=== PATIENT | female | born 1950 | race Hispanic/Latino ===

== ENCOUNTER 2016-08-04 07:48 | Inpatient (IN) | payer MEDICARE ==
[2016-08-01 11:48] VITALS: BMI 31.8
[2016-08-04] MEDS ORDERED: Lactated Ringer's 1,000 ML IV ONE ×2 (08:40→11:50)
[2016-08-04] MEDS ORDERED: Naloxone 0.4 mg/ml Inj (Adult) ONE (11:40)
[2016-08-04] MEDS ORDERED: Oxycodone/Acetaminophen 5/325 mg Tab PO PRN (11:52)
[2016-08-04] MEDS ORDERED: Naloxone 0.4 mg/ml Inj (Adult) IVP ONE (11:53)
--- NOTE | 2016-08-04 12:00 | PCM.SURG1 ---
Surgeon's Initial Post Op Note - Surgeon's Notes Surgeon: Dr. Sean Murillo Embedded Systems Software Developer: Brigette Hernandez, PGY1 Pre-Operative Diagnosis: Left breast cancer Operative Findings: See full operative report Post-Operative Diagnosis: same Operation Performed: Left breast modified radical mastectomy with left axillary lymph node dissection Specimen/Specimens Removed: Left breast, axillary lymph nodes Estimated Blood Loss: EBL {In ML}: 50 Drains Used: Johnathan Date of Surgery/Procedure: 08/04/16 Time of Surgery/Procedure: 10:00
[2016-08-04] MEDS ORDERED: HYDROmorphone 0.5 mg/0.5 ml ISec IVP PRN (12:28)
[2016-08-04] MEDS ORDERED: Naloxone 0.4 mg/ml Inj (Adult) IVP STA (12:35)
--- NOTE | 2016-08-04 15:39 | OP ---
PROCEDURE DATE: 08/04/2016 SURGEON: Dr. Murillo LICENSED MORTICIAN: Dr. Hernandez ANESTHESIA: General, Dr. Oviedo. PREOPERATIVE DIAGNOSIS: Carcinoma, left breast. POSTOPERATIVE DIAGNOSIS: Carcinoma, left breast. PROCEDURE: Left modified radical mastectomy with axillary lymph node dissection. DESCRIPTION OF OPERATION: With the patient in the supine position under adequate general anesthesia, the left breast, the left chest and upper arm were prepped and draped in the usual sterile manner. The patient is status post neoadjuvant chemotherapy and was noted to have ulceration of the left nipp le without palpable breast mass. An incision was marked ovoid including the nipple areolar complex a nd extending laterally to the lower portion of the axilla and the upper flap incision was made. The flap was raised up almost to the level of the clavicle. Just at the 1-2 o'clock position, there was an area where the skin flap appeared slightly adherent to the breast tissue. It is unclear whether t his represents a biopsy site or residua of the primary tumor and a segment of skin was excised just i n this area. The remainder of the skin flap raised easily with no visible tumor noted in the breast. The lower skin incision was then made and the lower skin flap raised down to the chest wall and the breast tissue was dissected off the pectoralis fascia using cautery. The excision was performed fro m lateral to medial at the lower portion to preserve the serratus musculature. When the breast had b een elevated off the chest wall, the axilla was entered and axillary contents swept downward from the area of the axillary vein and divided with Hemoclips to clear the axillary content. Two sclerotic l ymph nodes were palpable. There was no other gross palpable lymphadenopathy within the axilla at thi s point. When this had been completed, all bleeders were cauterized or ligated with 4-0 Vicryl ties. A 15 Thai Johnathan drain was placed into the axilla and beneath the skin flaps and brought out throu gh a lower stab incision and closure was then performed with wilian after a sterile water irrigation . Dry sterile dressing was applied. The patient tolerated the procedure well and transferred to the recovery room in stable condition. Estimated blood loss for the procedure was 50 mL. Sean Murillo MD cc: 58 TT: 08/04/2016 15:38:49 en
--- NOTE | 2016-08-05 08:37 | CP.PCM.PN ---
Subjective - Date & Time of Evaluation Date of Evaluation: 08/05/16 Time of Evaluation: 06:05 - Subjective Subjective: SURGERY NOTE DR CHRISTENSEN 66F seen and examined at bedside. States pain is controlled, denies any other complaints. 4by4s were placed on top for re-enforcements. Dressing is clean and intact. FAVIO drain output was 155cc since operation of serosanguinous. Objective - Vital Signs/Intake and Output Vital Signs (last 24 hours): Temp Pulse Resp BP Pulse Ox 98.5 F 83 18 114/67 97 08/05/16 07:36 08/05/16 07:36 08/05/16 07:36 08/05/16 07:36 08/05/16 07:36 Intake and Output: 08/05/16 08/05/16 06:59 18:59 Intake Total 880 Output Total 395 Balance 485 - Medications Medications: Current Medications Lisinopril (Zestril) 10 mg PO DAILY MAU Ondansetron HCl (Zofran Inj) 4 mg IVP Q6 PRN PRN Reason: Nausea/Vomiting Oxycodone/Acetaminophen (Percocet 5/325 Mg Tab) 1 tab PO Q4 PRN PRN Reason: Pain, moderate (4-7) Stop: 08/07/16 11:53 Pantoprazole Sodium (Protonix Ec Tab) 40 mg PO DAILY MAU - Constitutional Appears: Non-toxic, No Acute Distress - Respiratory Exam Respiratory Exam: Clear to Ausculation Bilateral, NORMAL BREATHING PATTERN - Cardiovascular Exam Cardiovascular Exam: REGULAR RHYTHM, +S1, +S2 - Skin Additional comments: dressing for mastectomy CDI, drain output 155cc since operation Assessment and Plan - Assessment and Plan (Free Text) Assessment: 66F s/p left modified radical mastectomy POD1 - pain control, - Follow up labs - dressing changes - drain management Further recs discuss with Dr Chidi Connolly, PGY1
[2016-08-05] MEDS: Pantoprazole 40 mg EC Tab PO SCH (08:53)
--- NOTE | 2016-08-06 06:57 | CP.PCM.DIS ---
Provider - Provider Date of Admission: 08/04/16 11:53 Attending physician: Sean Murillo MD Primary care physician: Teodoro Heck MD Time Spent in preparation of Discharge (in minutes): 40 Hospital Course - Hospital Course Hospital Course: 66F presented to [facility] same day for a left modified radical mastectomy. Post op care was given, Pain controlled, FAVIO drain care and out put monitor. She has no complaints today, states pain is tolerable. Patient ready to go home. Discharge Exam - Head Exam Head Exam: ATRAUMATIC - Eye Exam Eye Exam: EOMI, PERRL - ENT Exam ENT Exam: Mucous Membranes Moist - Respiratory Exam Respiratory Exam: Clear to PA & Lateral, NORMAL BREATHING PATTERN - Cardiovascular Exam Cardiovascular Exam: REGULAR RHYTHM, +S1, +S2 - GI/Abdominal Exam GI & Abdominal Exam: Soft. absent: Distended, Firm, Guarding, Rebound, Rigid, Tenderness - Back Exam Back exam: absent: tenderness - Neurological Exam Neurological exam: Alert, Oriented x3 - Psychiatric Exam Psychiatric exam: Normal Affect, Normal Mood - Skin Skin Exam: Dry, Intact, Normal Color, Warm Additional comments: left breast mastectomy dressing clean dry intact FAVIO output 100cc. Discharge Plan - Follow Up Plan Condition: GOOD Disposition: HOME/ ROUTINE Instructions: Mastectomy (DC) Additional Instructions: 1) Follow up with Dr. Murillo in one week upon discharge 2) Take prescriptions as directed 3) Can shower but no bathing or soaking incision in water Referrals: Teodoro Heck MD [Primary Care Provider] -
[2016-08-06 07:53] VITALS: BP 116/67; PULSE 74; RESP 20; TEMP 98.1; O2SAT 97
[2016-08-06] MEDS: Pantoprazole 40 mg EC Tab PO SCH (08:40)
--- NOTE | 2016-08-09 14:37 | CP.SDSHP ---
Same Day Surgery H & P - History Proposed Procedure: L mastectomy Pre-Op Diagnosis: Carcinoma L breast, patient s/p neoadjuvant chemotherapy with Herceptin. - Previous Medical/Surgical History Misc: Other (cancer breast) Previous Surgical History: knee surgery - Allergies Allergies: Allergies No Known Allergies Allergy (Verified 04/03/16 13:01) - Current Medications Current Medications: none - Physical Exam General Appearance: well developed, well nourished in NAD, +alopecia Mental Status: Alert & Oriented x3 Neuro: WNL Heart: WNL Lungs: WNL GI: WNL - {Optional Preform as Required} Breast: Other (ulceration L nipple, no palpable mass) Abdomen: WNL - Impression Impression: HEr2+ Ca of breast, for L mastectomy - Date & Time Date: 08/04/16 Time: 09:00 Short Stay Discharge - Short Stay Discharge Admitting Diagnosis/Reason for Visit: C50.9, S/P LEFT MASTECTOMY Disposition: HOME/ ROUTINE Referrals: Teodoro Heck MD [Primary Care Provider] - Instructions: Mastectomy (DC) Additional Instructions (Diet, Activity): 1) Follow up with Dr. Murillo in one week upon discharge 2) Take prescriptions as directed 3) Can shower but no bathing or soaking incision in water
== END 2016-08-06 15:00 | disposition home or self-care (01) | DRG 581 ==
LOC: H.OPSURG 07:48 → H.MEDSURG1 11:53
PROVIDERS: ADMIT Specialist; ATTEND Specialist
PROC: 07B60ZZ Excision of Left Axillary Lymphatic, Open Approach (ICD-10-PCS; 2016-08-04)
PROC: 0HTU0ZZ Resection of Left Breast, Open Approach (ICD-10-PCS; principal; 2016-08-04 09:45)
DX: C50.912 Malignant neoplasm of unspecified site of left female breast (principal); Z92.21 Personal history of antineoplastic chemotherapy

== ENCOUNTER 2016-08-12 23:03 | Emergency (ER) | payer MEDICARE ==
[2016-08-12 23:04] VITALS: BMI 31.8
[2016-08-12 23:46] VITALS: BP 153/71; PULSE 87; RESP 18; TEMP 98.9; O2SAT 97
--- NOTE | 2016-08-13 03:06 | ED PDOC ---
HPI: General Adult Time Seen by Provider: 08/13/16 00:00 Chief Complaint (Nursing): Breast Problem Chief Complaint (Provider): Discharge status post left mastectomy History Per: Patient History/Exam Limitations: no limitations Onset/Duration Of Symptoms: Mins (prior to arrival) Current Symptoms Are (Timing): Still Present Additional Complaint(s): Alma Rosa Landis is a 66 year old female with a previous medical history of hypertension and breast cancer (treated with chemotherapy in past), who presents to the emergency department with a complaint of yellow and pink discharge from left breast mastectomy performed 5 days ago by her surgeon, Sean Murillo MD who was made aware. Denies any fever, vomiting, or diarrhea. Stated a staple fell out from surgical site yesterday, 08/11/16. PMD: Teodoro Heck MD Past Medical History Reviewed: Historical Data, Nursing Documentation, Vital Signs Vital Signs: Last Vital Signs Temp 98.9 F 08/12/16 23:43 Pulse 87 08/12/16 23:43 Resp 18 08/12/16 23:43 BP 153/71 H 08/12/16 23:43 Pulse Ox 97 08/13/16 19:51 - Medical History PMH: Anxiety, Atrial Fibrillation, Depression, Fractures (Left humerus 03/2014), HTN, Hypercholesterolemia Denies: Chronic Kidney Disease Other PMH: Breast CA - Surgical History Other surgeries: Left breast mastectomy - Family History Family History: States: Stroke, CAD - Immunization History Hx Tetanus Toxoid Vaccination: No Hx Influenza Vaccination: No Hx Pneumococcal Vaccination: No - Home Medications Home Medications: Ambulatory Orders Medication Instructions Recorded Lisinopril [Zestril] 10 mg PO DAILY 10/20/15 Cephalexin [Keflex] 500 mg PO Q6H #28 capsule 08/13/16 - Allergies Allergies/Adverse Reactions: Allergies Allergy/AdvReac Type Severity Reaction Status Date / Time No Known Allergies Allergy Verified 04/03/16 13:01 Review of Systems ROS Statement: Except As Marked, All Systems Reviewed And Found Negative Constitutional: Positive for: Other (pink and yellow discharge from surgical site of left breast mastectomy). Negative for: Fever Gastrointestinal: Negative for: Vomiting, Diarrhea Physical Exam - Reviewed Nursing Documentation Reviewed: Yes Vital Signs Reviewed: Yes - Physical Exam Skin: Positive for: Normal Color. Negative for: Rash (cellulitis or swelling of surgical site) Eye Exam: Positive for: EOMI, Normal appearance, PERRL ENT: Positive for: Normal ENT Inspection Neck: Positive for: Normal, Painless ROM, Supple Cardiovascular/Chest: Positive for: Regular Rate, Rhythm, Other (surgical wilian over left breast in place. some serosanginuous fluid noted) Respiratory: Positive for: Normal Breath Sounds. Negative for: Respiratory Distress Gastrointestinal/Abdominal: Positive for: Normal Exam, Bowel Sounds, Soft. Negative for: Tenderness Back: Positive for: Normal Inspection. Negative for: L CVA Tenderness, R CVA Tenderness Extremity: Positive for: Normal ROM. Negative for: Pedal Edema Neurologic/Psych: Positive for: Alert, Oriented - ECG O2 Sat by Pulse Oximetry: 97 (RA) Pulse Ox Interpretation: Normal Medical Decision Making Medical Decision Making: Initial Impression: woujnd check status post left mastectomy Initial Plan: * Labs * Seen by surgical instrument technician in ED Time: 03:30 --vice president tax spoke to Dr. Murillo and pt evaluated by surgical residen in the ER. Per Dr. Murillo, patient is okay to discharge home with Keflex and advised to follow up in office. Scribe Attestation: Documented by Shahla Sharif, acting as a scribe for Aguila Sheikh MD. Provider Scribe Attestation: All medical record entries made by the Scribe were at my direction and personally dictated by me. I have reviewed the chart and agree that the record accurately reflects my personal performance of the history, physical exam, medical decision making, and the department course for this patient. I have also personally directed, reviewed, and agree with the discharge instructions and disposition. Disposition - Clinical Impression Clinical Impression: Pain of breast - Patient ED Disposition Is Patient to be Admitted: No Doctor Will See Patient In The: Office Counseled Patient/Family Regarding: Studies Performed, Diagnosis, Need For Followup, Rx Given - Disposition Referrals: Sean Murillo MD [Staff Provider] - Disposition: Routine/Home Disposition Time: 02:45 Condition: IMPROVED Additional Instructions: follow up with Dr Murillo as instructed take keflex as instructed return to the ED with any worsening or concerning symptoms. Prescriptions: Cephalexin [Keflex] 500 mg PO Q6H #28 capsule Instructions: Breast Cancer in Women (DC)
--- NOTE | 2016-08-13 03:42 | CP.PCM.CON ---
History of Present Illness - History of Present Illness History of Present Illness: General sx consult note for Dr. Misty Conde, PGY-1 Pt S & E at bedside. 66F w/PMH sig for L breast carcinoma s/p L modified radical mastectomy w/LN dissection, POD #8 seen/evaluated for possible post operative infection, concerns due to wound drainage. Pt reports discharge from hospital on 08/06, pt was cleared to remove dressing and shower upon discharge. Pt states she did not shower until 2 days after discharge, at which point dressing was saturated with pinkish yellow discharge. Pt showered, then replaced gauze dressing, kept dressing in place until 08/12 at which point pt noted that dressing was saturated with pinkish yellow discharge. Pt presented to ED for evaluation of discharge, concerns for infection post op. Admits to decreased appetite/alterations in taste s/p chemo, some sensations of "pulling" along staple line, loss of 2 wilian from staple line upon showering. Denies N/V/F/C, SOB, CP, ab pain, changes in bowel or bladder habits. PMH: L breast carcinoma, HTN PSH: L modified radical mastectomy w/LN dissection, L ankle reconstruction All: NKA SH: recent hx tobacco use x 45 yrs, denies ETOH or illicit drugs PMD: Teodoro Morris Review of Systems - Review of Systems All systems: reviewed and no additional remarkable complaints except - Constitutional Constitutional: absent: Chills, Fever - EENT Eyes: absent: Change in Vision Nose/Mouth/Throat: absent: Nasal Congestion, Sore Throat - Cardiovascular Cardiovascular: Leg Edema (occasional). absent: Chest Pain - Respiratory Respiratory: absent: Cough - Gastrointestinal Gastrointestinal: absent: Abdominal Pain, Nausea, Vomiting - Genitourinary Genitourinary: absent: Change in Urinary Stream - Integumentary Integumentary: absent: Rash Past Patient History - Past Medical History & Family History Past Medical History?: Yes - Past Social History Smoking Status: Light Smoker < 10 Cigarettes Daily - CARDIAC Hx Atrial Fibrillation: Yes Hx Hypercholesterolemia: Yes Hx Hypertension: Yes - PULMONARY Hx Respiratory Disorders: No - NEUROLOGICAL Hx Neurological Disorder: Yes - HEENT Hx HEENT Problems: No Other/Comment: Eyeglasses - RENAL Hx Chronic Kidney Disease: No - ENDOCRINE/METABOLIC Hx Endocrine Disorders: No - HEMATOLOGICAL/ONCOLOGICAL Hx Blood Disorders: Yes Hx Cancer: Yes (LEFT BREAST) - INTEGUMENTARY Hx Dermatological Problems: No - MUSCULOSKELETAL/RHEUMATOLOGICAL Hx Fractures: Yes (Left humerus 03/2014) - GASTROINTESTINAL Hx Gastrointestinal Disorders: No - GENITOURINARY/GYNECOLOGICAL Hx Genitourinary Disorders: No Hx Urinary Tract Infection: Yes (05/2016) - PSYCHIATRIC Hx Anxiety: Yes Hx Depression: Yes - SURGICAL HISTORY Hx Breast Biopsy: Yes (LEFT) Hx Mastectomy: Yes (Left 08/10/16) - ANESTHESIA Hx Anesthesia: Yes Hx Anesthesia Reactions: No Hx Malignant Hyperthermia: No Meds Allergies/Adverse Reactions: Allergies Allergy/AdvReac Type Severity Reaction Status Date / Time No Known Allergies Allergy Verified 04/03/16 13:01 - Medications Medications: Current Medications Cephalexin Monohydrate (Keflex) 500 mg PO STAT STA Stop: 08/13/16 03:35 Physical Exam - Constitutional Appears: Non-toxic, No Acute Distress - Head Exam Head Exam: ATRAUMATIC, NORMAL INSPECTION, NORMOCEPHALIC - Eye Exam Eye Exam: EOMI, Normal appearance - ENT Exam ENT Exam: Mucous Membranes Moist, Normal Exam - Neck Exam Neck exam: Positive for: Full Rom, Normal Inspection - Respiratory Exam Respiratory Exam: Clear to Auscultation Bilateral, NORMAL BREATHING PATTERN. absent: Rales, Rhonchi, Wheezes, Respiratory Distress - Cardiovascular Exam Cardiovascular Exam: REGULAR RHYTHM, +S1, +S2 - GI/Abdominal Exam GI & Abdominal Exam: Normal Bowel Sounds, Soft. absent: Distended, Tenderness - Extremities Exam Extremities exam: Positive for: normal inspection. Negative for: tenderness - Back Exam Back exam: NORMAL INSPECTION - Neurological Exam Neurological exam: Alert, CN II-XII Intact, Oriented x3 - Psychiatric Exam Psychiatric exam: Normal Affect, Normal Mood - Skin Skin Exam: Dry, Normal Color, Warm Additional comments: Left breast with horizontal surgical incision site with wilian, some induration along staple line, no fluctuance, no purulence, some serous drainage upon palpation, some ecchymoses along incision site, no erythema, no foul smell Results - Vital Signs Recent Vital Signs: Last Vital Signs Temp 98.9 F 08/12/16 23:43 Pulse 87 08/12/16 23:43 Resp 18 08/12/16 23:43 BP 153/71 H 08/12/16 23:43 Pulse Ox 97 08/13/16 03:16 Assessment & Plan - Assessment and Plan (Free Text) Plan: 66F w/PMH sig for L breast carcinoma POD #8 s/p L modified radial mastectomy w/ LN dissection evaluated for serosanguinous drainage from incision site -No signs of infection- no fluctuance/purulence, fevers -VSS -OK to d/c home on Keflex from surgical standpoint -FU w/Dr. Murillo on Sunday as scheduled DW attending Amaya, PGY-1 - Date & Time Date: 08/13/16 Time: 03:15
== END 2016-08-13 03:50 | disposition home or self-care (01) ==
LOC: H.ER 23:03
DX: N64.4 Mastodynia (principal); Z90.12 Acquired absence of left breast and nipple; Z85.3 Personal history of malignant neoplasm of breast; Z82.49 Family history of ischemic heart disease and other diseases of the circulatory system; I10 Essential (primary) hypertension; E78.00 Pure hypercholesterolemia, unspecified

== ENCOUNTER 2017-07-20 03:58 | Observation (INO) | payer MEDICARE ==
[2017-07-20 03:58] VITALS: BMI 31.8
--- NOTE | 2017-07-20 05:05 | ED PDOC ---
HPI: Chest Pain Time Seen by Provider: 07/20/17 04:05 Chief Complaint (Nursing): Chest Pain Chief Complaint (Provider): Chest Pain History Per: Patient History/Exam Limitations: no limitations Onset/Duration Of Symptoms: Hrs Current Symptoms Are (Timing): Still Present Additional Complaint(s): Alma Rosa Landis is a 67 year old female with a past medical history of hypertension and breast cancer who is presenting to the ED for evaluation of chest pain and palpitations, s/p smoking some cigarettes at 3 am. Patient states that she could also be feeling this away due to anxiety. She had a pulse of 103 in the ED. Patient denies any fever, cough, chills, or vomiting. Of note, patient is reported to have taken Aspirin prior to arrival. PMD: Teodoro Heck Past Medical History Vital Signs: Last Vital Signs Temp 97.6 F 07/21/17 08:00 Pulse 71 07/21/17 08:17 Resp 11 L 07/21/17 08:00 BP 121/57 L 07/21/17 08:17 Pulse Ox 98 07/21/17 08:00 - Medical History PMH: Anxiety, Atrial Fibrillation, Depression, Fractures (Left humerus 03/2014), HTN, Hypercholesterolemia Denies: Chronic Kidney Disease Other PMH: Breast Cancer - Surgical History Other surgeries: left mastectomy - Family History Family History: States: Stroke, CAD - Social History Current smoker - smoking cessation education provided: Yes Alcohol: None Drugs: Denies - Immunization History Hx Tetanus Toxoid Vaccination: No Hx Influenza Vaccination: No Hx Pneumococcal Vaccination: No - Home Medications Home Medications: Ambulatory Orders Medication Instructions Recorded Multivit-Min/Folic Acid/[id number] 1 tab PO DAILY 07/20/17 [Alive Women's Gummy Vitamins] Lisinopril [Zestril] 10 mg PO DAILY tab 07/21/17 - Allergies Allergies/Adverse Reactions: Allergies Allergy/AdvReac Type Severity Reaction Status Date / Time No Known Allergies Allergy Verified 04/03/16 13:01 MARIELA Risk Score for UA/NSTEMI - MARIELA Risk Score Age > 64: YES 3 or more CAD Risk Factors: NO Known CAD (Stenosis greater than 50%): NO Aspirin use in past 7 days: NO Severe Angina: NO EKG ST changes greater than 0.5mm: NO Positive Cardiac Marker: NO MARIELA Score: 1 Risk %: 5% Wells Criteria for PE - Wells Criteria for Pulmonary Embolism Clinical Signs and Symptoms of DVT: No P.E is #1 Diagnosis, or Equally Likely: No Heart Rate >100: Yes Immobilization at least 3 days;Surgery previous 4 weeks: No Previous, objectively diagnosed PE or DVT: No Hemoptysis: No Malignancy w/treatment within 6 months, or palliative: No Total Score: 1.5 Review of Systems ROS Statement: Except As Marked, All Systems Reviewed And Found Negative Constitutional: Negative for: Fever, Chills Cardiovascular: Positive for: Chest Pain, Palpitations Respiratory: Negative for: Cough Gastrointestinal: Negative for: Vomiting Physical Exam - Reviewed Nursing Documentation Reviewed: Yes Vital Signs Reviewed: Yes - Physical Exam Appears: Positive for: Non-toxic, No Acute Distress (speaking in full sentences) Head Exam: Positive for: ATRAUMATIC, NORMAL INSPECTION, NORMOCEPHALIC Skin: Positive for: Normal Color, Warm, DRY Eye Exam: Positive for: EOMI, Normal appearance, PERRL ENT: Positive for: Normal ENT Inspection Neck: Positive for: Normal, Painless ROM Cardiovascular/Chest: Positive for: Regular Rate, Rhythm, Other ((+) portacath placed in right anterior chest walll) Respiratory: Positive for: Normal Breath Sounds. Negative for: Respiratory Distress Gastrointestinal/Abdominal: Positive for: Normal Exam, Soft. Negative for: Tenderness Back: Positive for: Normal Inspection. Negative for: L CVA Tenderness, R CVA Tenderness, Vertebral Tenderness Extremity: Positive for: Normal ROM. Negative for: Deformity, Swelling Neurologic/Psych: Positive for: Alert, Oriented. Negative for: Motor/Sensory Deficits - Laboratory Results Result Diagrams: 07/21/17 05:30 07/21/17 05:30 - ECG ECG Rhythm: Positive for: Normal QRS, Normal ST Segment, Sinus Rhythm Rate: 83 O2 Sat by Pulse Oximetry: 99 (RA) Pulse Ox Interpretation: Normal Medical Decision Making Medical Decision Making: Time: 4:32 Plan: chest pain rule out [place] --EKG --BNP --CMP --Troponin --CBC --Chest X-Ray --D Dimer 6:40 Provider will consult family practice resident to discuss admission of patient; OBS-Tele. 6:45 Patient aware of admission status. Dr. Berry under family practice will follow up. They have agreed to admit patient under Dr. Heck. Scribe Attestation: Documented by, Trinh Boyd acting as a scribe for Aguila Sheikh MD. Provider Scribe Attestation: All medical record entries made by the Scribe were at my direction and personally dictated by me. I have reviewed the chart and agree that the record accurately reflects my personal performance of the history, physical exam, medical decision making, and the department course for this patient. I have also personally directed, reviewed, and agree with the discharge instructions and disposition. Disposition - Clinical Impression Clinical Impression: Acute chest pain - Patient ED Disposition Is Patient to be Admitted: Yes - Disposition Disposition Time: 06:00 Condition: STABLE
[2017-07-20 05:18] LABS: BASO % 0.1 % (0.0-2.0); EOS # 0.3 K/uL (0.0-0.7); EOS % 2.8 % (0.0-4.0); HEMOGLOBIN 12.5 g/dL (12.0-16.0); LYMPH # 3.9 K/uL (1.0-4.3); LYMPH % 43.7 % (20.0-40.0); MEAN CORPUSCULAR HEMOGLOBIN 31.8 pg (27.0-31.0); MEAN CORPUSCULAR HGB CONC 34.6 g/dL (33.0-37.0); MEAN PLATELET VOLUME 8.5 fl (7.2-11.7); MONO # 0.8 K/uL (0.0-0.8); MONO % 8.6 % (0.0-10.0); NEUT % 44.8 % (50.0-75.0); NRBC % 0.1 % (0.0-0.0); RBC 3.93 Mil/uL (3.80-5.20); RED CELL DISTRIBUTION WIDTH 13.2 % (11.5-14.5); WHITE BLOOD COUNT 8.9 K/uL (4.8-10.8)
[2017-07-20 05:56] LABS: ALB/GLOB RATIO 1.3 (1.0-2.1); ALBUMIN 3.9 g/dL (3.5-5.0); ALT/SGPT 45 U/L (9-52); AST/SGOT 39 U/L (14-36); BLOOD UREA NITROGEN 18 mg/dl (7-17); CALCIUM 9.6 mg/dL (8.4-10.2); GFR AFRICAN-AMERICAN > 60; GFR NON-AFRICAN AMERICAN > 60
[2017-07-20 06:08] LABS: B-TYPE NATRIURETIC PEPTIDE 86.2 pg/ml (0-900)
--- NOTE | 2017-07-20 08:11 | RAD ---
HISTORY: chest pain COMPARISON: Portable chest 08/01/2016. FINDINGS: Stable right sided MediPort position. LUNGS: No active pulmonary disease. PLEURA: No significant pleural effusion identified, no pneumothorax apparent. CARDIOVASCULAR: Normal. OSSEOUS STRUCTURES: No significant abnormalities. VISUALIZED UPPER ABDOMEN: Normal. OTHER FINDINGS: None. IMPRESSION: No interval acute cardiopulmonary disease appreciated.
[2017-07-20] MEDS: Enoxaparin 40 mg Syringe SC SCH (12:00)
--- NOTE | 2017-07-20 14:57 | CP.PCM.HP ---
<Issac Cruz - Last Filed: 07/20/17 17:43> History of Present Illness - History of Present Illness History of Present Illness: 67 y/o female with PMH of HTN, breast cancer s/p left modified radical mastectomy in 2017 admitted to the hospital for evaluation and treatment of left chest pain/tightness. Patient reports she started feeling chest discomfort at 3am after smoking a cig. pain is constant, squeezing in nature, 6/10 severity , non radiating, pain severity changed with breathing and never had this kind of pain before. Denies any associated symptoms such as headache, dizziness, weakness, blurred vision, f/c/n/v/d, abdominal discomfort or urinary symptoms. PMD: Teodoro Dee PMH: HTN, breast cancer s/p left modified radical mastectomy in 2017 PSH: left modified radical mastectomy in 2017 Allg: NKDA (patient reports had some dizziness with oxycodone in past) Med: None (Patient used to take Lisinopril in past) SH: Social alcohol use, half pack/day smoking, denies any illicit drug use FH: Father, decreased, stroke and heart attack age 50. Mother, stroke in her 80s ED Course: VS: 98.2, HR 83, RR 16, 146/85, Spo2 99% EKG: Normal QRS, Normal ST Segment, Sinus Rhythm, rate 83 Pro-BNP: 86.2 CMP: remarkable for only BUN 18, glucose 112, AST 39 CBC: wnl Troponin: less than 0.0120 CXR: No acute disease D-dimer: 177 Present on Admission - Present on Admission Any Indicators Present on Admission: No History of DVT/PE: No History of Uncontrolled Diabetes: No Urinary Catheter: No Decubitus Ulcer Present: No Past Patient History - Past Medical History & Family History Past Medical History?: Yes - Past Social History Smoking Status: Light Smoker < 10 Cigarettes Daily - CARDIAC Hx Cardiac Disorders: Yes Hx Hypercholesterolemia: Yes Hx Hypertension: Yes - PULMONARY Hx Respiratory Disorders: No - NEUROLOGICAL Hx Neurological Disorder: No - HEENT Hx HEENT Problems: No - RENAL Hx Chronic Kidney Disease: No - ENDOCRINE/METABOLIC Hx Endocrine Disorders: No - HEMATOLOGICAL/ONCOLOGICAL Hx Blood Disorders: Yes Hx AIDS: No Hx Cancer: Yes Hx Chemotherapy: Yes Hx Human Immunodeficiency Virus (HIV): No - INTEGUMENTARY Hx Dermatological Problems: No - MUSCULOSKELETAL/RHEUMATOLOGICAL Hx Musculoskeletal Disorders: Yes Hx Falls: Yes (years ago in the snow) Hx Fractures: Yes (left humerous from fall in snow) - GASTROINTESTINAL Hx Gastrointestinal Disorders: No - GENITOURINARY/GYNECOLOGICAL Hx Genitourinary Disorders: Yes Hx Urinary Tract Infection: Yes - PSYCHIATRIC Hx Psychophysiologic Disorder: No Hx Substance Use: No - SURGICAL HISTORY Hx Breast Biopsy: Yes (LEFT) Hx Mastectomy: Yes (Left 08/10/16) Hx Orthopedic Surgery: Yes - ANESTHESIA Hx Anesthesia: Yes Hx Anesthesia Reactions: No Hx Malignant Hyperthermia: No Meds Home Medications: Home Medication List Medication Instructions Recorded Confirmed Type Lisinopril [Zestril] 10 mg PO DAILY tab 07/21/17 Rx Allergies/Adverse Reactions: Allergies Allergy/AdvReac Type Severity Reaction Status Date / Time No Known Allergies Allergy Verified 04/03/16 13:01 Physical Exam - Constitutional Appears: No Acute Distress - Head Exam Head Exam: NORMAL INSPECTION - Eye Exam Eye Exam: Normal appearance - ENT Exam ENT Exam: Mucous Membranes Moist - Neck Exam Neck exam: Positive for: Normal Inspection - Respiratory Exam Respiratory Exam: Clear to Auscultation Bilateral, NORMAL BREATHING PATTERN - Cardiovascular Exam Cardiovascular Exam: REGULAR RHYTHM - GI/Abdominal Exam GI & Abdominal Exam: Normal Bowel Sounds - Extremities Exam Extremities exam: Positive for: normal capillary refill, normal inspection - Back Exam Back exam: NORMAL INSPECTION. absent: CVA tenderness (L), CVA tenderness (R) - Neurological Exam Neurological exam: Alert, CN II-XII Intact, Oriented x3 - Psychiatric Exam Psychiatric exam: Normal Affect, Normal Mood - Skin Skin Exam: Dry, Intact, Normal Color, Warm Results - Vital Signs Recent Vital Signs: Last Vital Signs Temp 98.0 F 07/20/17 09:00 Pulse 76 07/20/17 12:00 Resp 14 07/20/17 09:00 BP 127/76 07/20/17 12:00 Pulse Ox 98 07/20/17 08:30 - Labs Result Diagrams: 07/20/17 05:05 07/20/17 05:05 Labs: Laboratory Results - last 24 hr 07/20/17 07/20/17 07/20/17 05:05 05:05 08:33 WBC 8.9 RBC 3.93 Hgb 12.5 D Hct 36.1 MCV 92.0 MCH 31.8 H MCHC 34.6 RDW 13.2 Plt Count 237 MPV 8.5 Neut % (Auto) 44.8 L Lymph % (Auto) 43.7 H [place] % (Auto) 8.6 Eos % (Auto) 2.8 Baso % (Auto) 0.1 Neut # (Auto) 4.0 Lymph # (Auto) 3.9 [place] # (Auto) 0.8 Eos # (Auto) 0.3 Baso # (Auto) 0.0 D-Dimer, Quantitative 177 Sodium 141 Potassium 3.9 Chloride 102 Carbon Dioxide 27 Anion Gap 16 BUN 18 H Creatinine 0.8 Est GFR ( Amer) > 60 Est GFR (Non-Af Amer) > 60 Random Glucose 112 H Calcium 9.6 Total Bilirubin 0.4 AST 39 H ALT 45 Alkaline Phosphatase 71 Troponin I < 0.0120 NT-Pro-B Natriuret Pep 86.2 Total Protein 7.0 Albumin 3.9 Globulin 3.1 Albumin/Globulin Ratio 1.3 07/20/17 12:37 WBC RBC Hgb Hct MCV MCH MCHC RDW Plt Count MPV Neut % (Auto) Lymph % (Auto) [place] % (Auto) Eos % (Auto) Baso % (Auto) Neut # (Auto) Lymph # (Auto) [place] # (Auto) Eos # (Auto) Baso # (Auto) D-Dimer, Quantitative Sodium Potassium Chloride Carbon Dioxide Anion Gap BUN Creatinine Est GFR ( Amer) Est GFR (Non-Af Amer) Random Glucose Calcium Total Bilirubin AST ALT Alkaline Phosphatase Troponin I 0.0130 NT-Pro-B Natriuret Pep Total Protein Albumin Globulin Albumin/Globulin Ratio Assessment & Plan - Assessment and Plan (Free Text) Assessment: 67 y/o female with PMH of HTN, breast cancer s/p left modified radical mastectomy in 2017 admitted to the hospital for evaluation and treatment of left chest pain/tightness. Chest pain, r/o ACS -EKG: Normal QRS, Normal ST Segment, Sinus Rhythm, rate 83 -Pro-BNP: 86.2 -Troponin: less than 0.0120 -CXR: No acute disease -D-dimer: 177 -F/u Troponin Q8H x2 -F/u CBC, CMP in AM Hypertension -Controlled -Lisinopril 10mg PO daily Full Code - <Teodoro Heck - Last Filed: 07/23/17 06:47> Results - Vital Signs Recent Vital Signs: Last Vital Signs Temp 97.6 F 07/21/17 08:00 Pulse 83 07/22/17 19:58 Resp 11 L 07/21/17 08:00 BP 121/57 L 07/21/17 08:17 Pulse Ox 99 07/22/17 19:58 - Labs Result Diagrams: 07/21/17 05:30 07/21/17 05:30 Attending/Attestation - Attestation I have fully participated in the care of the patient.: Yes I have reviewed all pertinent clinical information: Yes
--- NOTE | 2017-07-20 16:18 | CARD ---
APPROVED REPORT EKG Measurement Heart [id number] <Conclusion> Normal sinus rhythm Normal ECG
[2017-07-21 06:21] LABS: BASO # 0.1 K/uL (0.0-0.2); EOS # 0.2 K/uL (0.0-0.7); EOS % 2.9 % (0.0-4.0); LYMPH # 3.7 K/uL (1.0-4.3); LYMPH % 49.2 % (20.0-40.0); MEAN CELL VOLUME 92.9 fl (81.0-99.0); MEAN CORPUSCULAR HEMOGLOBIN 31.3 pg (27.0-31.0); MEAN CORPUSCULAR HGB CONC 33.7 g/dL (33.0-37.0); MEAN PLATELET VOLUME 8.7 fl (7.2-11.7); MONO # 0.6 K/uL (0.0-0.8); MONO % 8.2 % (0.0-10.0); NEUT # 2.9 K/uL (1.8-7.0); NEUT % 38.7 % (50.0-75.0); NRBC % 0.1 % (0.0-0.0); RBC 4.14 Mil/uL (3.80-5.20); RED CELL DISTRIBUTION WIDTH 13.6 % (11.5-14.5); WHITE BLOOD COUNT 7.5 K/uL (4.8-10.8)
[2017-07-21 06:32] LABS: ALB/GLOB RATIO 1.2 (1.0-2.1); ALBUMIN 3.8 g/dL (3.5-5.0); ALT/SGPT 38 U/L (9-52); AST/SGOT 34 U/L (14-36); BLOOD UREA NITROGEN 18 mg/dl (7-17); CALCIUM 9.1 mg/dL (8.4-10.2); GFR AFRICAN-AMERICAN > 60; GFR NON-AFRICAN AMERICAN > 60
[2017-07-21 08:14] VITALS: BP 121/57; RESP 11; TEMP 97.6
[2017-07-21] MEDS: Enoxaparin 40 mg Syringe SC SCH (08:17)
--- NOTE | 2017-07-21 09:54 | CP.PCM.DIS ---
<Rachid Gramajo F - Last Filed: 07/21/17 09:51> Provider - Provider Date of Admission: 07/20/17 06:36 Attending physician: Teodoro Heck MD Primary care physician: Teodoro Heck MD Time Spent in preparation of Discharge (in minutes): 20 Hospital Course - Lab Results Lab Results: Most Recent Lab Values WBC 7.5 K/uL (4.8-10.8) 07/21/17 05:30 RBC 4.14 Mil/uL (3.80-5.20) 07/21/17 05:30 Hgb 13.0 g/dL (12.0-16.0) 07/21/17 05:30 Hct 38.5 % (34.0-47.0) 07/21/17 05:30 MCV 92.9 fl (81.0-99.0) 07/21/17 05:30 MCH 31.3 pg (27.0-31.0) H 07/21/17 05:30 MCHC 33.7 g/dL (33.0-37.0) 07/21/17 05:30 RDW 13.6 % (11.5-14.5) 07/21/17 05:30 Plt Count 241 K/uL (130-400) 07/21/17 05:30 MPV 8.7 fl (7.2-11.7) 07/21/17 05:30 Neut % (Auto) 38.7 % (50.0-75.0) L 07/21/17 05:30 Lymph % (Auto) 49.2 % (20.0-40.0) H 07/21/17 05:30 [place] % (Auto) 8.2 % (0.0-10.0) 07/21/17 05:30 Eos % (Auto) 2.9 % (0.0-4.0) 07/21/17 05:30 Baso % (Auto) 1.0 % (0.0-2.0) 07/21/17 05:30 Neut # (Auto) 2.9 K/uL (1.8-7.0) 07/21/17 05:30 Lymph # (Auto) 3.7 K/uL (1.0-4.3) 07/21/17 05:30 [place] # (Auto) 0.6 K/uL (0.0-0.8) 07/21/17 05:30 Eos # (Auto) 0.2 K/uL (0.0-0.7) 07/21/17 05:30 Baso # (Auto) 0.1 K/uL (0.0-0.2) 07/21/17 05:30 D-Dimer, Quantitative 177 ng/mlDDU (0-230) 07/20/17 08:33 Sodium 141 mmol/l (132-148) 07/21/17 05:30 Potassium 4.4 MMOL/L (3.6-5.0) 07/21/17 05:30 Chloride 105 mmol/L (98-107) 07/21/17 05:30 Carbon Dioxide 29 mmol/L (22-30) 07/21/17 05:30 Anion Gap 11 (10-20) 07/21/17 05:30 BUN 18 mg/dl (7-17) H 07/21/17 05:30 Creatinine 0.8 mg/dl (0.7-1.2) 07/21/17 05:30 Est GFR ( Amer) > 60 07/21/17 05:30 Est GFR (Non-Af Amer) > 60 07/21/17 05:30 Random Glucose 93 mg/dL (65-105) 07/21/17 05:30 Calcium 9.1 mg/dL (8.4-10.2) 07/21/17 05:30 Total Bilirubin 0.7 mg/dl (0.2-1.3) 07/21/17 05:30 AST 34 U/L (14-36) 07/21/17 05:30 ALT 38 U/L (9-52) 07/21/17 05:30 Alkaline Phosphatase 64 U/L (38-126) 07/21/17 05:30 Troponin I < 0.0120 ng/mL (0.00-0.120) 07/20/17 21:45 NT-Pro-B Natriuret Pep 86.2 pg/ml (0-900) 07/20/17 05:05 Total Protein 6.9 G/DL (6.3-8.2) 07/21/17 05:30 Albumin 3.8 g/dL (3.5-5.0) 07/21/17 05:30 Globulin 3.1 gm/dL (2.2-3.9) 07/21/17 05:30 Albumin/Globulin Ratio 1.2 (1.0-2.1) 07/21/17 05:30 - Hospital Course Hospital Course: 67 y/o F admitted due to chest pain with anxiety. ECG NSR, Trops x 3 negative. VSS Stable to DC home with follow up with Dr. Heck in 2-3 days. Discharge Exam - Head Exam Head Exam: NORMAL INSPECTION - Eye Exam Eye Exam: EOMI Pupil Exam: PERRL - ENT Exam ENT Exam: Mucous Membranes Moist - Respiratory Exam Respiratory Exam: Clear to PA & Lateral - Cardiovascular Exam Cardiovascular Exam: +S1, +S2 - GI/Abdominal Exam GI & Abdominal Exam: Normal Bowel Sounds, Soft. absent: Tenderness - Neurological Exam Neurological exam: Alert, Oriented x3 - Psychiatric Exam Psychiatric exam: Normal Affect, Normal Mood - Skin Skin Exam: Dry, Normal Color Discharge Plan - Follow Up Plan Condition: GOOD Disposition: HOME/ ROUTINE Patient education suggested?: Yes Instructions: Anxiety, Adult (DC) Additional Instructions: Stable to DC Follow up with Dr. Heck in 2-3 days ER precautions given Referrals: Teodoro Heck MD [Primary Care Provider] - <Kerry Phama - Last Filed: 07/21/17 12:28> Provider - Provider Date of Admission: 07/20/17 06:36 Attending physician: Teodoro Heck MD Primary care physician: Teodoro Heck MD Hospital Course - Lab Results Lab Results: Most Recent Lab Values WBC 7.5 K/uL (4.8-10.8) 07/21/17 05:30 RBC 4.14 Mil/uL (3.80-5.20) 07/21/17 05:30 Hgb 13.0 g/dL (12.0-16.0) 07/21/17 05:30 Hct 38.5 % (34.0-47.0) 07/21/17 05:30 MCV 92.9 fl (81.0-99.0) 07/21/17 05:30 MCH 31.3 pg (27.0-31.0) H 07/21/17 05:30 MCHC 33.7 g/dL (33.0-37.0) 07/21/17 05:30 RDW 13.6 % (11.5-14.5) 07/21/17 05:30 Plt Count 241 K/uL (130-400) 07/21/17 05:30 MPV 8.7 fl (7.2-11.7) 07/21/17 05:30 Neut % (Auto) 38.7 % (50.0-75.0) L 07/21/17 05:30 Lymph % (Auto) 49.2 % (20.0-40.0) H 07/21/17 05:30 [place] % (Auto) 8.2 % (0.0-10.0) 07/21/17 05:30 Eos % (Auto) 2.9 % (0.0-4.0) 07/21/17 05:30 Baso % (Auto) 1.0 % (0.0-2.0) 07/21/17 05:30 Neut # (Auto) 2.9 K/uL (1.8-7.0) 07/21/17 05:30 Lymph # (Auto) 3.7 K/uL (1.0-4.3) 07/21/17 05:30 [place] # (Auto) 0.6 K/uL (0.0-0.8) 07/21/17 05:30 Eos # (Auto) 0.2 K/uL (0.0-0.7) 07/21/17 05:30 Baso # (Auto) 0.1 K/uL (0.0-0.2) 07/21/17 05:30 D-Dimer, Quantitative 177 ng/mlDDU (0-230) 07/20/17 08:33 Sodium 141 mmol/l (132-148) 07/21/17 05:30 Potassium 4.4 MMOL/L (3.6-5.0) 07/21/17 05:30 Chloride 105 mmol/L (98-107) 07/21/17 05:30 Carbon Dioxide 29 mmol/L (22-30) 07/21/17 05:30 Anion Gap 11 (10-20) 07/21/17 05:30 BUN 18 mg/dl (7-17) H 07/21/17 05:30 Creatinine 0.8 mg/dl (0.7-1.2) 07/21/17 05:30 Est GFR ( Amer) > 60 07/21/17 05:30 Est GFR (Non-Af Amer) > 60 07/21/17 05:30 Random Glucose 93 mg/dL (65-105) 07/21/17 05:30 Calcium 9.1 mg/dL (8.4-10.2) 07/21/17 05:30 Total Bilirubin 0.7 mg/dl (0.2-1.3) 07/21/17 05:30 AST 34 U/L (14-36) 07/21/17 05:30 ALT 38 U/L (9-52) 07/21/17 05:30 Alkaline Phosphatase 64 U/L (38-126) 07/21/17 05:30 Troponin I < 0.0120 ng/mL (0.00-0.120) 07/20/17 21:45 NT-Pro-B Natriuret Pep 86.2 pg/ml (0-900) 07/20/17 05:05 Total Protein 6.9 G/DL (6.3-8.2) 07/21/17 05:30 Albumin 3.8 g/dL (3.5-5.0) 07/21/17 05:30 Globulin 3.1 gm/dL (2.2-3.9) 07/21/17 05:30 Albumin/Globulin Ratio 1.2 (1.0-2.1) 07/21/17 05:30 Attending/Attestation - Attestation I have personally seen and examined this patient.: Yes I have fully participated in the care of the patient.: Yes I have reviewed all pertinent clinical information, including history, physical exam and plan: Yes Notes (Text): 07/21/17 12:28 Attestation ATTENDING NOTE Patient seen and examined. Chart reviewed. Case discussed with resident. Agree with findings and plan.
[2017-07-22 19:58] VITALS: PULSE 83; O2SAT 99
== END 2017-07-21 14:10 | disposition home or self-care (01) ==
LOC: H.ER 03:58 → H.ERHOLD 06:36 → H.ICU/CCU 09:40
PROVIDERS: ADMIT Family Medicine; ATTEND Family Medicine
DX: R07.9 Chest pain, unspecified (principal); F41.9 Anxiety disorder, unspecified; I10 Essential (primary) hypertension; I25.10 Atherosclerotic heart disease of native coronary artery without angina pectoris; I48.91 Unspecified atrial fibrillation; Z79.899 Other long term (current) drug therapy; Z82.3 Family history of stroke; Z82.49 Family history of ischemic heart disease and other diseases of the circulatory system; Z85.3 Personal history of malignant neoplasm of breast; Z87.440 Personal history of urinary (tract) infections; Z90.12 Acquired absence of left breast and nipple; F32.9 Major depressive disorder, single episode, unspecified; R42 Dizziness and giddiness; Z87.81 Personal history of (healed) traumatic fracture; Z91.81 History of falling; E78.00 Pure hypercholesterolemia, unspecified; F17.200 Nicotine dependence, unspecified, uncomplicated; R00.2 Palpitations
CPT/HCPCS: 71045; 80053; 83880; 84484; 85025; 85378; 87081; 93005; 96372; 99285; G0378; J1650